=== PATIENT | female | born 1940 | race Caucasian/White ===

== ENCOUNTER → 2017-03-16 | Outpatient (CLI) | payer BC ==
[~2017-03-16] MED LIST: ANAS1TAB PO; DILT180C72 PO; GLUC1500 PO; OMEG1CAP23 PO
== END | disposition home or self-care (01) ==
LOC: ROC 12:32
PROVIDERS: ATTEND Radiology Radiation Oncology
DX: C50.912 Malignant neoplasm of unspecified site of left female breast (principal)
CPT/HCPCS: 99213; G0463

== ENCOUNTER → 2017-12-11 | Outpatient (CLI) | payer BC ==
[~2017-12-11] MED LIST changes: -GLUC1500 PO; +GLUC15006 PO
== END | disposition home or self-care (01) ==
LOC: RAD 13:00
PROVIDERS: ATTEND Nurse Practitioner
DX: M79.604 Pain in right leg (principal); Z85.3 Personal history of malignant neoplasm of breast

== ENCOUNTER → 2018-04-05 | Outpatient (CLI) | payer BC | END | disposition home or self-care (01) | LOC: RAD 16:23 | PROVIDERS: ATTEND Orthopaedic Surgery | DX: M50.121 Cervical disc disorder at C4-C5 level with radiculopathy (principal); M50.122 Cervical disc disorder at C5-C6 level with radiculopathy | CPT/HCPCS: 72141 ==

== ENCOUNTER → 2019-03-13 | Outpatient (CLI) | payer BC | END | disposition home or self-care (01) | LOC: CFH 12:53 | PROVIDERS: ATTEND Internal Medicine Hematology & Oncology | DX: Z12.31 Encounter for screening mammogram for malignant neoplasm of breast (principal) | CPT/HCPCS: 77063; 77067 ==

== ENCOUNTER → 2019-05-01 | Outpatient (CLI) | payer BC | END | disposition home or self-care (01) | LOC: RAD 08:59 | PROVIDERS: ATTEND Nurse Practitioner | DX: C50.112 Malignant neoplasm of central portion of left female breast (principal); M81.0 Age-related osteoporosis without current pathological fracture; E55.9 Vitamin D deficiency, unspecified; F51.01 Primary insomnia; Z79.811 Long term (current) use of aromatase inhibitors ==

== ENCOUNTER 2019-09-05 06:53 | Outpatient (CLI) | payer BC | END 2019-09-05 23:59 | disposition home or self-care (01) | LOC: CVU 06:53 | PROVIDERS: ATTEND Family Medicine | DX: I83.93 Asymptomatic varicose veins of bilateral lower extremities (principal) | CPT/HCPCS: 93970 ==

== ENCOUNTER → 2019-10-02 | Outpatient (CLI) | payer BC ==
[~2019-10-02] MED LIST changes: +ASPI-496 PO; +CHOL10003 PO; +CYAN1TAB29 PO; +DENO60DI SC
== END | disposition home or self-care (01) ==
LOC: STAR 14:38
PROVIDERS: ATTEND Surgery Vascular Surgery
DX: Z01.818 Encounter for other preprocedural examination (principal); R00.1 Bradycardia, unspecified
CPT/HCPCS: 93005

== ENCOUNTER 2019-10-06 10:10 | Day surgery (SDC) | payer BC ==
[~2019-10-06] VITALS: Ht 167.6 cm; Wt 76.2 kg
[2019-10-06] MEDS ORDERED: LACTATED RINGERS 1,000 ML IV SCH (10:48)
[2019-10-06 10:50] VITALS: BP 134/78
[2019-10-06] MEDS ORDERED: CHLORHEXIDINE 15 ML UDC MM ONE (11:00)
[2019-10-06] MEDS ORDERED: BUPIVACAINE/PF-EPI 0.5% 1:200K ONE (11:27)
[2019-10-06] MEDS ORDERED: FENTANYL PF 100 MCG/2ML ONE ×2 (11:35→13:13)
[2019-10-06] MEDS ORDERED: LIDOCAINE-MPF 2% ,5ML ONE (11:48)
[2019-10-06] MEDS ORDERED: ONDANSETRON 2MG/ML, 2ML IVPush PRN (12:00)
[2019-10-06] MEDS ORDERED: PROMETHAZINE 25 MG/ML, 1ML IVPush PRN (12:00)
[2019-10-06] MEDS ORDERED: PROMETHAZINE 25 MG SUPP PR PRN (12:00)
[2019-10-06] MEDS ORDERED: HYDROmorphone 1 MG/ML, 1ML INJ IVPush PRN (12:00)
[2019-10-06] MEDS ORDERED: FENTANYL PF 100 MCG/2ML IV PRN (12:00)
[2019-10-06] MEDS ORDERED: ACETAMINOPHEN 325 MG TABLET PO PRN (12:00)
[2019-10-06] MEDS ORDERED: METOPROLOL 1 MG/ML, 5ML IV PRN (12:00)
[2019-10-06] MEDS ORDERED: OXYcodone 5 MG/5 ML ORAL.SOL UDC PO PRN (12:00)
[2019-10-06] MEDS ORDERED: ONDANSETRON 2MG/ML, 2ML ONE (12:33)
[2019-10-06] MEDS ORDERED: PROPOFOL 10 MG/ML, 20ML ONE (12:33)
[2019-10-06] MEDS ORDERED: DEXAMETHASONE 4 MG/ML, 1ML ONE (12:33)
[2019-10-06] MEDS ORDERED: CEFAZOLIN 1,000 MG ONE (12:33)
[2019-10-06] MEDS ORDERED: OXYcodone 5 MG/5 ML ORAL.SOL UDC ONE (13:13)
[2019-10-06] MEDS ORDERED: ACETAMINOPHEN 650 MG/20.3 ML UDC ONE (13:14)
[2019-10-06] MEDS ORDERED: ACETAMINOPHEN 325 MG TABLET ONE (13:14)
== END 2019-10-06 16:15 | disposition home or self-care (01) ==
LOC: OR 10:10
PROVIDERS: ATTEND Surgery Vascular Surgery
DX: I87.2 Venous insufficiency (chronic) (peripheral) (principal); Z11.59 Encounter for screening for other viral diseases; I83.811 Varicose veins of right lower extremity with pain; I83.022 Varicose veins of left lower extremity with ulcer of calf; L97.229 Non-pressure chronic ulcer of left calf with unspecified severity; Z79.899 Other long term (current) drug therapy; Z85.3 Personal history of malignant neoplasm of breast; Z90.12 Acquired absence of left breast and nipple; Z98.890 Other specified postprocedural states; Z82.49 Family history of ischemic heart disease and other diseases of the circulatory system; Z82.61 Family history of arthritis
CPT/HCPCS: 36415; 37700; 37765; 87635; J0690; J1100; J2405; J2704; J3010; J7120

== ENCOUNTER → 2020-09-01 | Outpatient (CLI) | payer BC | END | disposition home or self-care (01) | LOC: CFH 13:46 | PROVIDERS: ATTEND Nurse Practitioner Family | DX: N64.4 Mastodynia (principal); Z85.3 Personal history of malignant neoplasm of breast | CPT/HCPCS: 76642; 77062; 77066; G0279 ==